=== PATIENT | male | born 1945 | race Caucasian/White ===

== ENCOUNTER → 2019-03-31 | Outpatient (CLI) | payer MEDICARE ==
[~2019-03-31] MED LIST: ALLOPURINOL300 MG PO; ASPIRIN300 MG; ASPIRIN325 MG PO; ASPIRIN500 MG PO; CARVEDILOL25 MG PO; CLOPIDOGREL75 MG PO; COQ-10100 MG PO; CORDARONE200 MG PO; CRESTOR20 MG PO; CYCLOBENZAPRINE10 MG PO; GLIMEPIRIDE2 MG PO; ISOSORBIDE MONO30 M1 PO; KLOR-CON M2020 MEQ PO; L-ARGININE500 MG PO; LISINOPRIL20 MG PO; SPIRONOLACTONE25 MG PO; TESTOSTERO100 MG/1 M PO; TORSEMIDE20 MG PO; VENTOLIN HFA18 GM; VITAMIN D3 1,01 EACH
--- NOTE | 2019-03-31 09:21 | Diagnostic Imaging Report ---
Exam: KUB - 2 views Clinical History: Renal calculus. Comparison: None. Findings: Nonobstructive bowel gas pattern. Bowel gas partially obscures visualization of the kidneys. There is a 3 mm calcification overlying the left mid kidney. No evidence of calcification overlying the expected course of the ureters. Phleboliths project over the pelvis. Calcified atherosclerotic calcifications in the pelvis and inguinal regions. Surgical clips project over the upper abdomen bilaterally and right inguinal region. Partially seen median sternotomy. Degenerative changes of the lumbar spine. Impression: Possible 3 mm left mid pole renal stone. Signed by: Dr. Marilee Parker MD on 03/31/2019 9:17 AM
== END ==
LOC: RAD 08:19
PROVIDERS: ATTEND Urology
DX: N20.0 Calculus of kidney (principal)
CPT/HCPCS: 74018

== ENCOUNTER → 2019-08-24 | Outpatient (CLI) | payer MEDICARE ==
--- NOTE | 2019-08-24 14:27 | Diagnostic Imaging Report ---
EXAM: Renal Ultrasound INDICATION: ^CKD,STAGE III COMPARISON: KUB of 03/31/2019 TECHNIQUE: Transverse and longitudinal images of the kidneys and bladder (prevoid and postvoid) were obtained. FINDINGS: Right Kidney: Length: 10.1 cm Appearance: Normal echogenicity. Collecting system: No hydronephrosis Stones: None Cyst/Mass: Anechoic simple cyst at the lateral midpole measuring 1.2 x 0.7 x 1.0 cm. Left Kidney: Length: 10.3 cm Appearance: Normal echogenicity. Collecting system: No hydronephrosis Stones: None Cyst/Mass: Anechoic simple cyst at the lateral midpole measuring 1.0 x 0.6 x 0.7 cm. Bladder: No mass or calculi. Bilateral ureteral jets seen. Prevoid volume estimate of 106 cc. Post void volume estimate of 4.0 cc. The prostate measures 2.9 x 2.7 x 3.5 cm with volume estimate of 14.1 cc. IMPRESSION: No hydronephrosis or renal calculi. Simple renal cysts as above. Signed by: Nieves Evans MD on 08/24/2019 2:24 PM
== END ==
LOC: US 12:33
PROVIDERS: ATTEND Internal Medicine Nephrology
DX: N18.3 Chronic kidney disease, stage 3 (moderate) (principal); N28.1 Cyst of kidney, acquired
CPT/HCPCS: 76770; 76857